=== PATIENT | male | born 1995 | race African-American/Black ===

== ENCOUNTER 2016-10-30 18:07 | Emergency (ER) | payer OTHER, MEDICAID ==
[~2016-10-30 18:07] MED LIST: DICL50 PO; SULF-154 PO
[2016-10-30 18:09] VITALS: BP 141/96; PULSE 82; RESP 16; TEMP 97.8; O2SAT 99
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
[2016-10-30] MEDS ORDERED: CYCLOBENZAPRINE HCL 10 MG TAB PO ONE (19:00)
[2016-10-30] MEDS ORDERED: KETOROLAC TROMETHAMINE 60 MG/2 ML (IM) VIAL IM ONE (19:00)
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
[2016-10-30] MEDS ORDERED: NAPROXEN 500 MG TAB PO ONE (19:30)
[2016-10-30] MEDS ORDERED: CYCL1TAB29 PO (19:38)
[2016-10-30] MEDS ORDERED: NAPR500 PO (19:38)
[2016-10-30 19:50] VITALS: BP 138/88; PULSE 80; RESP 14; O2SAT 99
== END 2016-10-30 20:00 | disposition home or self-care (01) ==
LOC: NEPD 18:07
DX: S09.90XA Unspecified injury of head, initial encounter (principal); S60.222A Contusion of left hand, initial encounter; S16.1XXA Strain of muscle, fascia and tendon at neck level, initial encounter; R51 Headache; V43.52XA Car driver injured in collision with other type car in traffic accident, initial encounter; Y92.410 Unspecified street and highway as the place of occurrence of the external cause
CPT/HCPCS: 70450; 72125; 73130; 96372